=== PATIENT | male | born 1990 | race African-American/Black ===

== ENCOUNTER 2020-02-19 13:36 | Emergency (ER) | payer SELFPAY ==
[2020-02-20 01:01] LABS: SARS-CoV-2 MS2 Positive; SARS-CoV-2 N Gene Negative; SARS-CoV-2 S Gene Negative; SARS-CoV-2 by NAA Not Detected (NotDetected); SARS-CoV-2 orf1ab Negative
== END 2020-02-19 14:15 | disposition home or self-care (01) ==
LOC: ERS 13:36
DX: Z20.828 Contact with and (suspected) exposure to other viral communicable diseases (principal); J45.909 Unspecified asthma, uncomplicated
CPT/HCPCS: 87635; 99283; U0003